=== PATIENT | male | born 1950 | race Caucasian/White ===

== ENCOUNTER 2020-08-16 21:38 | Outpatient (REF) | payer MEDICARE, OTHER, SELFPAY ==
[2020-08-19 23:34] LABS: SARS-CoV-2 RNA Undetected (Undetected); SARS-CoV-2 Specimen Source Nasopharynx
== END 2020-08-16 21:58 ==
LOC: NCHCN 21:38
PROVIDERS: PCP Family Medicine; Visit Provider Family Medicine
DX: Z20.828 Contact with and (suspected) exposure to other viral communicable diseases (principal)
CPT/HCPCS: U0003

== ENCOUNTER 2020-08-31 17:58 | Outpatient (REF) | payer MEDICARE, OTHER, SELFPAY ==
[2020-08-31 21:23] LABS: HCT 41.6 % (40.0-50.0); MCH 32.6 pg (27.0-33.0); MCHC 33.7 % (32.0-36.0); MPV 10.3 fL (8.0-11.0); Platelet Count 152 10^3/uL (130-400); RBC 4.29 10^6/uL (4.36-5.78); RDW-SD 43.2 fL
[2020-08-31 21:46] LABS: Hemoglobin A1C 5.2 % (<5.7)
[2020-08-31 22:18] LABS: ALT 34 U/L (16-63); AST 29 U/L (15-37); Albumin 4.5 g/dL (3.4-5.0); Alkaline Phosphatase 69 U/L (46-116); Anion Gap 6.2 mmol/L (3-11); BUN 16 mg/dL (7-18); Bilirubin, Total 0.8 mg/dL (0.2-1.0); CO2 26.8 mmol/L (21.0-32.0); CREATININE 0.81 mg/dL (0.70-1.30); Calcium 9.2 mg/dL (8.5-10.1); Calculated LDL 145 mg/dL (<100); Chloride 108 mmol/L (98-107); Cholesterol 208 mg/dL (<200); Glucose 95 mg/dL (74-106); HDL Cholesterol 46 mg/dL (40-60); Potassium 4.5 mmol/L (3.5-5.1); Sodium 141 mmol/L (136-145); TSH (W/Ref FT4) 0.84 uIU/mL (0.36-3.74); Total Protein 7.3 g/dL (6.4-8.2); Triglyceride 87 mg/dL (<150); Vitamin B12 429 pg/mL (193-986)
== END 2020-08-31 18:18 ==
LOC: NCHCN 17:58
PROVIDERS: PCP Family Medicine; Visit Provider Family Medicine
DX: E78.2 Mixed hyperlipidemia (principal); R73.01 Impaired fasting glucose; R41.3 Other amnesia; R27.9 Unspecified lack of coordination
CPT/HCPCS: 80053; 80061; 85027; 82607; 83036; 84443

== ENCOUNTER 2020-12-03 20:31 | Outpatient (REF) | payer MEDICARE, OTHER, SELFPAY ==
[2020-12-03 14:36] LABS: ALT 63 U/L (16-63); AST 43 U/L (15-37); Albumin 4.2 g/dL (3.4-5.0); Alkaline Phosphatase 81 U/L (46-116); Bilirubin, Direct 0.21 mg/dL (0.00-0.20); Bilirubin, Total 0.8 mg/dL (0.2-1.0); Total Protein 7.3 g/dL (6.4-8.2)
[2020-12-03 14:55] LABS: Calculated LDL 94 mg/dL (<100); Cholesterol 149 mg/dL (<200); HDL Cholesterol 44 mg/dL (40-60); Triglyceride 59 mg/dL (<150)
== END 2020-12-03 20:32 | disposition home or self-care (01) ==
LOC: NCHCN 20:31
PROVIDERS: PCP Family Medicine; Visit Provider Family Medicine
DX: E78.2 Mixed hyperlipidemia (principal)
CPT/HCPCS: 80061; 80076

== ENCOUNTER 2021-02-13 20:47 | Outpatient (REF) | payer MEDICARE, OTHER, SELFPAY ==
[2021-02-13 22:00] LABS: ESR 2 mm//hr (0-20)
[2021-02-13 22:02] LABS: Abs Immature Grans 0.03 10^3/uL (0.0-0.06); Absolute Basophil Count 0.07 10^3/uL (0.0-0.2); Absolute Eosinophil Count 0.05 10^3/uL (0.0-0.7); Absolute Lymphocyte Count 1.18 10^3/uL (1.2-3.4); Absolute Monocyte Count 0.55 10^3/uL (0.1-0.8); Absolute Neutrophil Count 2.04 10^3/uL (1.2-6.7); Basophils % 1.8; Eosinophils % 1.3; HCT 43.3 % (40.0-50.0); HGB 14.6 g/dL (13.5-17.5); Immature Grans % 0.8; Lymphocytes % 30.1; MCH 32.5 pg (27.0-33.0); MCHC 33.7 % (32.0-36.0); MCV 96.4 fL (80-95); MPV 10.6 fL (8.0-11.0); Nucleated RBC 0 %; Platelet Count 157 10^3/uL (130-400); RBC 4.49 10^6/uL (4.36-5.78); RDW 11.5 % (11.8-14.1); RDW-SD 40.7 fL; WBC 3.92 10^3/uL (4.4-10.8)
== END 2021-02-13 20:48 | disposition home or self-care (01) ==
LOC: NCHCN 20:47
PROVIDERS: PCP Family Medicine; Visit Provider Family Medicine
DX: M79.604 Pain in right leg (principal); M79.605 Pain in left leg
CPT/HCPCS: 85652; 85025; 86140

== ENCOUNTER 2021-08-22 14:53 | Outpatient (REF) | payer MEDICARE, OTHER, SELFPAY ==
[2021-08-22 15:24] LABS: ALT 29 U/L (16-63); AST 23 U/L (15-37); Alkaline Phosphatase 66 U/L (46-116); Anion Gap 10.6 mmol/L (3-11); BUN 13 mg/dL (7-18); Bilirubin, Total 0.5 mg/dL (0.2-1.0); CO2 25.4 mmol/L (21.0-32.0); CREATININE 0.7 mg/dL (0.70-1.30); Calcium 8.6 mg/dL (8.5-10.1); Chloride 110 mmol/L (98-107); Glucose 81 mg/dL (74-106); Potassium 4.1 mmol/L (3.5-5.1); Sodium 146 mmol/L (136-145); Total Protein 6.7 g/dL (6.4-8.2)
== END 2021-08-22 14:54 | disposition home or self-care (01) ==
LOC: NCHCN 14:53
PROVIDERS: PCP Family Medicine; Visit Provider Family Medicine
DX: E78.2 Mixed hyperlipidemia (principal); G20 Parkinson's disease; R42 Dizziness and giddiness
CPT/HCPCS: 80053

== ENCOUNTER 2022-08-28 15:15 | Outpatient (REF) | payer MEDICARE, OTHER, SELFPAY ==
[2022-08-28 15:22] LABS: ALT 32 U/L (16-63); AST 29 U/L (15-37); Albumin 4.1 g/dL (3.4-5.0); Alkaline Phosphatase 82 U/L (46-116); Anion Gap 8.7 mmol/L (3-11); BUN 13 mg/dL (7-18); Bilirubin, Total 0.5 mg/dL (0.2-1.0); CO2 26.3 mmol/L (21.0-32.0); CREATININE 0.8 mg/dL (0.70-1.30); Calcium 8.9 mg/dL (8.5-10.1); Calculated LDL 155 mg/dL (<100); Chloride 109 mmol/L (98-107); Cholesterol 218 mg/dL (<200); Estimated GFR 94.62 (mL/min/1.73m2); Glucose 96 mg/dL (74-106); HDL Cholesterol 51 mg/dL (40-60); Potassium 4.5 mmol/L (3.5-5.1); Sodium 144 mmol/L (136-145); Total Protein 7.3 g/dL (6.4-8.2); Triglyceride 60 mg/dL (<150)
== END 2022-08-28 15:16 | disposition home or self-care (01) ==
LOC: NCHCN 15:15
PROVIDERS: PCP Family Medicine; Visit Provider Family Medicine
DX: E78.2 Mixed hyperlipidemia (principal)
CPT/HCPCS: 80053; 80061

== ENCOUNTER 2023-01-02 12:33 | Outpatient (REF) | payer MEDICARE, OTHER, SELFPAY ==
--- OUTSIDE RECORDS SUMMARY | 2023-01-02 12:42 | XMS_ITS | CCD ---
Author Name Unknown Address [address] [place] [address] [phone] Organization Unknown Address [address] [place] [address] [phone] Care Team Providers Care Screen Printing Machine Operator Name Role Phone MARVEL DOMINGUEZ David Attending Physician [phone] Vital Signs Unknown or Not Available. Allergies Allergy Code Allergy Type Reaction Status No Known Allergies 0 No known allergies Active Procedures Unknown or Not Available. History of Immunizations Unknown or Not Available. Problems Problem Code Start Date Resolved Date Status Fracture of right rib [id number] 04/11/2022 Active Fall 04/11/2022 Active Results Unknown or Not Available. Active Medications Medication Code Dose Units Frequency Route Modificatio n Start Date/Time HYDROcodone bitartrate-acet aminophen 5MG-325MG Oral Tablet 721502 1 TABLET NEEDED EVERY 4 HOURS ORAL 04/11/2022 13:15 Prescription Detail TAKE 1 TABLET ORAL NEEDED EVERY 4 [facility] FOR Pain Lidocaine 5% Topical application Patch, Extended Release [id number] 1 DAILY TOPICAL APPLICATION 04/11/2022 13:14 Prescription Detail 1-2 PATCHES TOPICAL APPLICATION DAILY, 1 2 hours on and 12 hours off per day Acetaminophen 500MG Oral Tablet [id number] 2 TABLET NEEDED EVERY 6 HOURS ORAL 04/11/2022 13:13 Prescription Detail TAKE 2 TABLET ORAL NEEDED EVERY 6 [place] FOR Pain Ibuprofen 200MG Oral Tablet 056044 2 TABLET EVERY 6 HOURS ORAL 04/11/2022 13:13 Prescription Detail TAKE 2 TABLET ORAL EVERY 6 HOURS NEED ED FOR PAIN Medications Administered During Visit Unknown or Not Available. Encounters Encounter Diagnosis Diagnosis Code Start Date Other abnormalities of gait and mobility [id number] 09/26/2022 Social History Smoking Status Code Start Date End Date Never smoker [id number] Patient Decision Aids Unknown or Not Available. Discharge Instructions You were admitted to [facility] on 09/26/2022 13:21 with a principal diagnosis of Other abnormalities of gait and mobility You were discharged from [facility] on 11/03/2022 08:32 Should you have any questions prior to discharge, please contact a member of your healthcare team. If you have left the hospital and have any questions, please contact your primary care physician. Chief Complaint and Reason For Visit Unknown or Not Available. Function Status Unknown or Not Available. Plan of Care Unknown or Not Available. Referral/Transition of Care Unknown or Not Available.
--- OUTSIDE RECORDS SUMMARY | 2023-01-02 12:42 | XMS_ITS | CCD ---
Author Name Unknown Address [address] [place] [address] [phone] Organization Unknown Address [address] [place] [address] [phone] Care Team Providers Care Product Picker Name Role Phone OLGA MOORE Attending Physician [phone] Vital Signs Unknown or Not Available. Allergies Unknown or Not Available. Procedures Unknown or Not Available. History of Immunizations Unknown or Not Available. Problems Problem Code Start Date Resolved Date Status Fracture of right rib [id number] 04/11/2022 Active Fall 04/11/2022 Active Results Unknown or Not Available. Active Medications Medication Code Dose Units Frequency Route Modificatio n Start Date/Time HYDROcodone bitartrate-acet aminophen 5MG-325MG Oral Tablet 138852 1 TABLET NEEDED EVERY 4 HOURS ORAL 04/11/2022 13:15 Prescription Detail TAKE 1 TABLET ORAL NEEDED EVERY 4 [place] FOR Pain Lidocaine 5% Topical application Patch, Extended Release [id number] 1 DAILY TOPICAL APPLICATION 04/11/2022 13:14 Prescription Detail 1-2 PATCHES TOPICAL APPLICATION DAILY, 1 2 hours on and 12 hours off per day Acetaminophen 500MG Oral Tablet 850597 2 TABLET NEEDED EVERY 6 HOURS ORAL 04/11/2022 13:13 Prescription Detail TAKE 2 TABLET ORAL NEEDED EVERY 6 [place] FOR Pain Ibuprofen 200MG Oral Tablet 983917 2 TABLET EVERY 6 HOURS ORAL 04/11/2022 13:13 Prescription Detail TAKE 2 TABLET ORAL EVERY 6 HOURS NEED ED FOR PAIN Medications Administered During Visit Unknown or Not Available. Encounters Unknown or Not Available. Social History Smoking Status Code Start Date End Date Never smoker [id number] Patient Decision Aids Unknown or Not Available. Discharge Instructions You were admitted to [facility] on 04/22/2021 09:49 You were discharged from [facility] on 04/22/2021 09:49 Should you have any questions prior to [...]
--- OUTSIDE RECORDS SUMMARY | 2023-01-02 12:42 | XMS_ITS | CCD ---
Author Name Unknown Address [address] [place] [address] [phone] Organization Unknown Address [address] [place] [address] [phone] Care Team Providers Care Sanding Machine Buffer Name Role Phone KAVITHA URBANO Attending Physician [phone] KAVITHA URBANO Er Physician [phone] BELEN De La Cruz Registered Nurse [phone] Vital Signs Vital Sign Value Unit Date/Time Recent/Initial ? BMI (Body Mass Index) 22.43 kg/m^2 04/11/2022 11: 25 Initial VS Weight Measured 170 lbs 04/11/2022 11:25 Ini tial VS Height 73 in 04/11/2022 11:25 Initial VS BSA (Body Surface Area) 1.99 m^2 04/11/2022 1 1:25 Initial VS BP Systolic 130 mmHg 04/11/2022 11:25 Initial VS BP Diastolic 89 mmHg 04/11/2022 11:25 Initia l VS Respiratory Rate 20 bpm 04/11/2022 11:25 In itial VS Heart Rate 62 bpm 04/11/2022 11:25 Initial VS O2 % BldC Oximetry 95 % 04/11/2022 11:25 Initial VS Body Temperature 35.6 degrees 04/11/2022 11:25 In itial VS Allergies Allergy Code Allergy Type Reaction Status No Known Allergies 0 No known allergies Active Procedures Unknown or Not Available. History of Immunizations Unknown or Not Available. Problems Problem Code Start Date Resolved Date Status Fracture of right rib [id number] 04/11/2022 Active Fall 04/11/2022 Active Results Unknown or Not Available. Active Medications Medications Administered During Visit Medication Dose Units Frequency Route Date/Time of Last Dose LIDOCAINE PATCH 5% 1 PATCH X1 TRANSDERMAL 04/11/2022 12:18 ACETAMINOPHEN TABLET: 325MG 975 MG X1 PO 04/11/2022 12:19 Encounters Encounter Diagnosis Diagnosis Code Start Date Fracture of one rib, right s norah, initial encounter for closed fracture [id number] 04/11/2022 Social History Smoking Status Code Start Date End Date Never smoker [id number] Patient Decision Aids Patient Decision Aid Fall Prevention for Older Ad ults Rib Fracture Discharge Instructions You were admitted to [facility] on 04/11/2022 10:58 with a principal diagnosis of Fracture of one rib, right side, initial encounter for closed fracture You were discharged from [facility] on 04/11/2022 13:48 Should you have any questions prior to discharge, please contact a member of your healthcare team. If you have left the hospital and have any questions, please contact your primary care physician. Chief Complaint and Reason For Visit Chief Complaint Date of Onset FALL RIB PAIN Function Status Unknown or Not Available. Plan of Care Unknown or Not Available. Referral/Transition of Care Unknown or Not Available.
--- OUTSIDE RECORDS SUMMARY | 2023-01-02 12:42 | XMS_ITS | CCD ---
Author Name Unknown Address [address] [place] [address] [phone] Organization Unknown Address [address] [place] [address] [phone] Care Team Providers Care Cabinet Professional Name Role Phone LYNDA GUARDADO MD Attending Physician [phone] Vital Signs Unknown or Not Available. Allergies Unknown or Not Available. Procedures Unknown or Not Available. History of Immunizations Unknown or Not Available. Problems Problem Code Start Date Resolved Date Status Fracture of right rib [id number] 04/11/2022 Active Fall 04/11/2022 Active Results Unknown or Not Available. Active Medications Medication Code Dose Units Frequency Route Modificatio n Start Date/Time HYDROcodone bitartrate-acet aminophen 5MG-325MG Oral Tablet 488522 1 TABLET NEEDED EVERY 4 HOURS ORAL 04/11/2022 13:15 Prescription Detail TAKE 1 TABLET ORAL NEEDED EVERY 4 [place] [facility] FOR Pain Lidocaine 5% Topical application Patch, Extended Release [id number] 1 DAILY TOPICAL APPLICATION 04/11/2022 13:14 Prescription Detail 1-2 PATCHES TOPICAL APPLICATION DAILY, 1 2 hours on and 12 hours off per day Acetaminophen 500MG Oral Tablet 522529 2 TABLET NEEDED EVERY 6 HOURS ORAL 04/11/2022 13:13 Prescription Detail TAKE 2 TABLET ORAL NEEDED EVERY 6 [place] FOR Pain Ibuprofen 200MG Oral Tablet 551887 2 TABLET EVERY 6 HOURS ORAL 04/11/2022 13:13 Prescription Detail TAKE 2 TABLET ORAL EVERY 6 HOURS NEED ED FOR PAIN Medications Administered During Visit Unknown or Not Available. Encounters Encounter Diagnosis Diagnosis Code Start Date Unspecified dementia, unspec ified severity, without behavioral disturbance, psychotic disturbance, mood disturbance, and anxiety [id number] 07/24/2021 Social History Smoking Status Code Start Date End Date Never smoker [id number] Patient Decision Aids Unknown or Not Available. Discharge Instructions You were admitted to [facility] on 07/24/2021 11:29 with a principal diagnosis of Unspecified dementia without behavioral disturbance You were discharged from [facility] 01 on 07/24/2021 11:29 Should you have any questions prior to [...]
--- OUTSIDE RECORDS SUMMARY | 2023-01-02 12:42 | XMS_ITS | CCD ---
Author Name Unknown Address [address] [place] [address] [id number] Organization Unknown Address [address] [place] [address] [phone] Care Team Providers Care Kettle Fry Cook Operator Name Role Phone JORGE BIRCH Attending Physician [phone] MARVEL DOMINGUEZ (Secondary) Physician [phone] Vital Signs Unknown or Not Available. Allergies Unknown or Not Available. Procedures Unknown or Not Available. History of Immunizations Unknown or Not Available. Problems Problem Code Start Date Resolved Date Status Fracture of right rib [id number] 04/11/2022 Active Fall 04/11/2022 Active Results Unknown or Not Available. Active Medications Medication Code Dose Units Frequency Route Modificatio n Start Date/Time HYDROcodone bitartrate-acet aminophen 5MG-325MG Oral Tablet 429408 1 TABLET NEEDED EVERY 4 HOURS ORAL 04/11/2022 13:15 Prescription Detail TAKE 1 TABLET ORAL NEEDED EVERY 4 [place] [facility] FOR Pain Lidocaine 5% Topical application Patch, Extended Release 8881299 1 DAILY TOPICAL APPLICATION 04/11/2022 13:14 Prescription Detail 1-2 PATCHES TOPICAL APPLICATION DAILY, 1 2 hours on and 12 hours off per day Acetaminophen 500MG Oral Tablet 897474 2 TABLET NEEDED EVERY 6 HOURS ORAL 04/11/2022 13:13 Prescription Detail TAKE 2 TABLET ORAL NEEDED EVERY 6 [place] [facility] FOR Pain Ibuprofen 200MG Oral Tablet 430044 2 TABLET EVERY 6 HOURS ORAL 04/11/2022 13:13 Prescription Detail TAKE 2 TABLET ORAL EVERY 6 HOURS NEED ED FOR PAIN Medications Administered During Visit Unknown or Not Available. Encounters Encounter Diagnosis Diagnosis Code Start Date Other abnormalities of gait and mobility R2689 01/24/2022 Social History Smoking Status Code Start Date End Date Never smoker [id number] Patient Decision Aids Unknown or Not Available. Discharge Instructions You were admitted to [facility] on 01/24/2022 12:26 with a principal diagnosis of Other abnormalities of gait and mobility You were discharged from [facility] on 02/28/2022 15:41 Should you have any questions prior to [...]
--- OUTSIDE RECORDS SUMMARY | 2023-01-02 12:43 | XMS_ITS | CCD ---
Author Name Unknown Address [address] [place] [address] [phone] Organization Unknown Address [address] [place] [address] [phone] Care Team Providers Care Benefits Director Name Role Phone DEBBYNURYANGELALUPE French Attending Physician [phone] Vital Signs Unknown or Not Available. Allergies Allergy Code Allergy Type Reaction Status No Known Allergies 0 No known allergies Active Procedures Unknown or Not Available. History of Immunizations Unknown or Not Available. Problems Problem Code Start Date Resolved Date Status Fracture of right rib [id number] 04/11/2022 Active Fall 04/11/2022 Active Results Unknown or Not Available. Active Medications Medication Code Dose Units Frequency Route Modificatio n Start Date/Time HYDROcodone bitartrate-acet aminophen 5MG-325MG Oral Tablet 526016 1 TABLET NEEDED EVERY 4 HOURS ORAL 04/11/2022 13:15 Prescription Detail TAKE 1 TABLET ORAL NEEDED EVERY 4 [place] [facility] FOR Pain Lidocaine 5% Topical application Patch, Extended Release 1151409 1 DAILY TOPICAL APPLICATION 04/11/2022 13:14 Prescription Detail 1-2 PATCHES TOPICAL APPLICATION DAILY, 1 2 hours on and 12 hours off per day Acetaminophen 500MG Oral Tablet 098930 2 TABLET NEEDED EVERY 6 HOURS ORAL 04/11/2022 13:13 Prescription Detail TAKE 2 TABLET ORAL NEEDED EVERY 6 [place] [facility] FOR Pain Ibuprofen 200MG Oral Tablet 391804 2 TABLET EVERY 6 HOURS ORAL 04/11/2022 13:13 Prescription Detail TAKE 2 TABLET ORAL EVERY 6 HOURS NEED ED FOR PAIN Medications Administered During Visit Unknown or Not Available. Encounters Encounter Diagnosis Diagnosis Code Start Date Neurocognitive disorder with [place] G3183 11/12/2022 Social History Smoking Status Code Start Date End Date Never smoker [id number] Patient Decision Aids Unknown or Not Available. Discharge Instructions You were admitted to [facility] on 11/12/2022 12:46 with a principal diagnosis of Neurocognitive disorder with [place] You were discharged from [facility] Should you have any questions prior to [...]
[2023-01-02 15:36] LABS: ALT 30 U/L (16-63); AST 26 U/L (15-37); Alkaline Phosphatase 73 U/L (46-116); Anion Gap 8.7 mmol/L (3-11); BUN 9 mg/dL (7-18); Bilirubin, Total 0.9 mg/dL (0.2-1.0); CO2 28.3 mmol/L (21.0-32.0); CREATININE 0.7 mg/dL (0.70-1.30); Calcium 9.6 mg/dL (8.5-10.1); Calculated LDL 77 mg/dL (<100); Chloride 108 mmol/L (98-107); Cholesterol 138 mg/dL (<200); Glucose 97 mg/dL (74-106); HDL Cholesterol 47 mg/dL (40-60); Potassium 4.4 mmol/L (3.5-5.1); Sodium 145 mmol/L (136-145); Total Protein 7.1 g/dL (6.4-8.2); Triglyceride 73 mg/dL (<150)
== END 2023-01-02 12:34 | disposition home or self-care (01) ==
LOC: NCHCN 12:33
PROVIDERS: PCP Family Medicine; Visit Provider Family Medicine
DX: E78.2 Mixed hyperlipidemia (principal); I73.9 Peripheral vascular disease, unspecified
CPT/HCPCS: 80053; 80061

== ENCOUNTER 2024-03-29 12:19 | Outpatient (REF) | payer MEDICARE, OTHER, SELFPAY ==
[2024-03-29 15:57] LABS: HCT 39.7 % (40.0-50.0); HGB 13.2 g/dL (13.5-17.5); MCH 32.2 pg (27.0-33.0); MCHC 33.2 % (32.0-36.0); MCV 97 fL (80-95); MPV 10.1 fL (8.0-11.0); Platelet Count 183 10^3/uL (130-400); RDW 12.8 % (11.8-14.1); RDW-SD 45.7 fL; WBC 4.79 10^3/uL (4.4-10.8)
[2024-03-29 16:15] LABS: Anion Gap 9.4 mmol/L (3-11); BUN 13 mg/dL (7-18); CO2 26.6 mmol/L (21.0-32.0); CREATININE 0.9 mg/dL (0.70-1.30); Calcium 9.2 mg/dL (8.5-10.1); Chloride 107 mmol/L (98-107); Estimated GFR 90.18 (mL/min/1.73m2); Glucose 113 mg/dL (74-106); Potassium 4.3 mmol/L (3.5-5.1); Sodium 143 mmol/L (136-145)
== END 2024-03-29 12:20 | disposition home or self-care (01) ==
LOC: NCHCN 12:19
PROVIDERS: PCP Family Medicine; Visit Provider Physician Assistant
DX: R58 Hemorrhage, not elsewhere classified (principal); S39.81XA Other specified injuries of abdomen, initial encounter
CPT/HCPCS: 80048; 85027; 85610; 85730